=== PATIENT | female | born 1950 | race Caucasian/White ===

== ENCOUNTER → 2016-09-21 | Outpatient (CLI) | payer BC ==
[~2016-09-21] MED LIST: BENADRYL25 M2 PO; MULTI VITAMINS1 TAB PO; PROZAC 10MG10 MG PO; ULTRAM 50MG TAB50 MG PO
== END ==
LOC: COL.RAD 12:45
DX: E04.8 Other specified nontoxic goiter (principal); D44.0 Neoplasm of uncertain behavior of thyroid gland

== ENCOUNTER → 2016-09-27 | Outpatient (CLI) | payer BC | LOC: MC.RAD 09:39 | DX: Z12.31 Encounter for screening mammogram for malignant neoplasm of breast (principal) ==

== ENCOUNTER → 2016-10-13 | Outpatient (CLI) | payer BC ==
[~2016-10-13] VITALS: Ht 170.2 cm; Wt 68.2 kg
[2016-10-13 13:42] VITALS: BP 127/83; PULSE 73
[2016-10-13 14:58] VITALS: BP 139/87; PULSE 71
== END ==
LOC: COL.RAD 13:17
DX: D34 Benign neoplasm of thyroid gland (principal)
CPT/HCPCS: 13756